=== PATIENT | male | born 1970 | race Caucasian/White ===

== ENCOUNTER 2023-12-06 04:03 | Day surgery (SDC) | payer OTHER ==
[2023-12-03 12:39] VITALS: BMI 23.1
[2023-12-06] MEDS ORDERED: BUPIVACAINE HCL/PF 0.75% 10 ML VIAL ONE (07:10)
[2023-12-06] MEDS ORDERED: LIDOCAINE HCL/PF 1% SDV 5ML VIAL ONE (07:10)
[2023-12-06] MEDS: LIDOCAINE 1% P/F 10 MG/ML VIAL INF ONE ×3 (09:15)
[2023-12-06 10:15] VITALS: BP 120/77; PULSE 78; RESP 18; TEMP 97.4
[2023-12-06] MEDS ORDERED: ACETAMINOPHEN 500 MG TABLET (FP) PO PRN (17:16)
== END 2023-12-06 10:21 | disposition home or self-care (01) ==
LOC: JASU-SURG 04:03
PROVIDERS: ATTEND Pain Medicine Pain Medicine
PROC: 01HY3MZ Insertion of Neurostimulator Lead into Peripheral Nerve, Percutaneous Approach (ICD-10-PCS; principal; 2023-12-06 09:00)
DX: G89.4 Chronic pain syndrome (principal); M54.6 Pain in thoracic spine
CPT/HCPCS: 64555; C1778; 76000-TC-FY